=== PATIENT | female | born 1965 | race Caucasian/White ===

== ENCOUNTER → 2016-06-02 | Outpatient (CLI) | payer BC ==
--- NOTE | 2016-06-03 08:06 | BD ---
EXAMINATION TYPE: MG DEXA axial skeleton. DATE OF EXAM: 06/02/2016 3:37 PM COMPARISON: NONE CLINICAL HISTORY: POST MENOPAUSAL Height: 5 Weight: 142 FRAXIN RISK QUESTIONS: Alcohol (3 or more units per day): no Family History (Parent hip fracture): no Glucocorticoids (More than 3mos): no (Ex: prednisone, prednisolone, methylprednisolone, dexamethasone, and hydrocortisone). History of Fracture in Adulthood: no Secondary Osteoporosis: 1. Type 1 Diabetes: no 2. Hyperthyroidism: no 3. Menopause before 45: no 4. Malnutrition: no 5. Chronic liver disease: no Rheumatoid Arthritis: no Current Tobacco Use: no RISK FACTORS HISTORY OF: Postmenopausal woman: MEDICATIONS: Additional Medications: cholesterol, xanax, Motrin Additional History: screening post menopausal EXAM MEASUREMENTS: Bone mineral densitometry was performed using the [employer] System. Bone mineral density as measured about the Lumbar spine is: ----- L1-L4(G/cm2): 1.120 T Score Values are as follows: ----- L2: -1.5 ----- L3: -0.4 ----- L4: 1.0 ----- L1-L4:-0.5 Bone mineral density about the R hip (g/cm2): 0.880 Bone mineral density about the L hip (g/cm2): 0.926 T Score values are as follows: -----R Neck: -1.1 -----L Neck: -0.8 -----R Intertrochanter: -0.9 -----L Intertrochanter: -0.7 IMPRESSION: Osteopenia (T Score between -2.5 and -1 as noted by T score values:L2,Rt hip There is slightly increased risk of fracture and the patient may be considered for treatment. Re-Screen 1-2 years. NOTE: T-SCORE=SD OF THE YOUNG ADULT MEAN.
--- NOTE | 2016-06-03 09:28 | MM ---
Reason for exam: screening (asymptomatic). Last mammogram was performed 1 year and 1 month ago. History: Patient is postmenopausal and had first child at age 35. Family history of premenopausal breast cancer in sister at age 36. Benign MG stereo VAD BX LT of the left breast, February 15, 2014. Benign US left guided VAD of the left breast, November 03, 2008. Excisional biopsy of the left breast, February 28, 2008. Cancelled Left Mammotome of the left breast, February 24, 2008. Physical Findings: A clinical breast exam by your physician is recommended on an annual basis and results should be correlated with mammographic findings. MG Screening Mammo w CAD Bilateral CC and MLO view(s) were taken. Prior study comparison: May 12, 2015, bilateral MG screening mammo w CAD. July 26, 2014, left breast MG diagnostic mammo LT w CAD. The breast tissue is extremely dense which could obscure a lesion on mammography. Finding: There are indeterminate calcifications in the upper outer quadrant of the right breast, additonal stable left calcifications. Previous mammotome biopsy in the left breast. There is a chronic nodularity in the left breast. ASSESSMENT: Incomplete: need additional imaging evaluation, BI-RAD 0 RECOMMENDATION: Special view mammogram of the right breast. [facility] will attempt to contact patient to return for supplemental views.
== END | disposition home or self-care (01) ==
LOC: RADMAMWWP 15:01
PROVIDERS: ATTEND Obstetrics & Gynecology
DX: Z12.31 Encounter for screening mammogram for malignant neoplasm of breast (principal); M85.88 Other specified disorders of bone density and structure, other site; N95.1 Menopausal and female climacteric states
CPT/HCPCS: 77080; G0202

== ENCOUNTER → 2016-06-09 | Outpatient (CLI) | payer BC ==
--- NOTE | 2016-06-10 07:13 | MM ---
Reason for exam: additional evaluation requested from abnormal screening. Last mammogram was performed less than 1 month ago. History: Patient is postmenopausal and had first child at age 35. Family history of premenopausal breast cancer in sister at age 36. Benign MG stereo VAD BX LT of the left breast, February 15, 2014. Benign US left guided VAD of the left breast, November 03, 2008. Excisional biopsy of the left breast, February 28, 2008. Cancelled Left Mammotome of the left breast, February 24, 2008. Physical Findings: Nurse did not find any significant physical abnormalities on exam. MG 3D Work Up W/Cad RT ML view(s) were taken of the right breast. Prior study comparison: June 02, 2016, bilateral MG screening mammo w CAD. May 12, 2015, bilateral MG screening mammo w CAD. The breast tissue is heterogeneously dense. This may lower the sensitivity of mammography. Finding: There are slowly increasing grouped/clustered calcifications in the right breast. Increase in number of calcifications since 2014. ASSESSMENT: Suspicious, BI-RAD 4 RECOMMENDATION: Stereotactic core biopsy of the right breast. Called Dr. Deleon with mammographic findings and has scheduled an appointment for the patient for 06/23/16 at 4:[address] Huizar. PRELIMINARY REPORT CALLED AND FAXED TO DR. HUIZAR ON 06/10/16 AT 300/TP.
== END | disposition home or self-care (01) ==
LOC: RADMAMWWP 14:59
PROVIDERS: ATTEND Obstetrics & Gynecology
DX: R92.8 Other abnormal and inconclusive findings on diagnostic imaging of breast (principal)
CPT/HCPCS: G0206; G0279

== ENCOUNTER → 2016-07-03 | Day surgery (SDC) | payer BC ==
[~2016-07-03] MED LIST: BACITRACIN OINT 1 EACH PACKET TOPICAL ONE; LIDOCAINE 1% INJ 10MG/ML (20 ML MDV) ONE
--- NOTE | 2016-07-03 16:29 | MM ---
EXAMINATION TYPE: MG stereo VAD BX RT DATE OF EXAM: 07/03/2016 11:13 AM COMPARISON: 06/02/2016 CLINICAL HISTORY: 50-year-old female abnormal mammogram, referred for biopsy of right breast calcifications. TECHNIQUE: Stereotactic guided core biopsy of the right breast. FINDINGS: The procedure of stereotactic guided core biopsy was explained to the patient. Benefits, alternatives, and risks were discussed. An informed consent was then obtained. The shortness pathway for biopsy was chosen. Shortness pathway was a CC from above approach. I performed the localization, then surgeon, Dr. Roy performed the remainder of the procedure. A vacuum assisted biopsy gun was used to obtain multiple core samples. The patient tolerated the procedure well without any immediate complication. The patient was kept in the radiology department for short stay after the procedure and then discharged home in stable condition. Targeted calcifications are identified in specimen mammogram. Post biopsy mammogram shows the clip to appear in satisfactory position relative to the targeted area of concern on the preprocedure images. IMPRESSION: SUCCESSFUL, UNCOMPLICATED STEREOTACTIC GUIDED CORE BIOPSY OF RIGHT BREAST MICROCALCIFICATIONS, FULL PATHOLOGY RESULTS TO FOLLOW. Pathology Results: Benign BREAST, RIGHT, CORE BIOPSY: FIBROCYSTIC CHANGES INCLUDING FIBROADENOMATOID HYPERPLASIA WITH CALCIFICATIONS, FIBROSIS AND ADENOSIS. Recommendation Follow up mammogram of the right breast in 6 months. MIN
--- NOTE | 2016-07-03 21:48 | PCN ---
DATE OF PROCEDURE: PREPROCEDURE DIAGNOSIS: Suspicious mammogram, calcification right breast. POSTOPERATIVE DIAGNOSIS: Defer to pathology. PROCEDURE: Mammotome biopsy with clip application. This patient presented to my office with abnormal right mammogram, family history of breast cancer. [facility], placed on the mammotome table in the prone position. After coordinates were obtained by the radiologist, the skin was cleaned with Betadine. After infiltrating the skin with Marcaine 25% plain, the mammotome needle was advanced according to coordinates. Multiple cores were taken. X-ray of the core showed the calcification in question. Marker was placed. X-ray showed the marker in good position. The patient tolerated the procedure well.
== END ==
LOC: RADMAMWWP 10:04
PROVIDERS: ATTEND Surgery
DX: N60.11 Diffuse cystic mastopathy of right breast (principal); D24.1 Benign neoplasm of right breast; N60.21 Fibroadenosis of right breast; R92.8 Other abnormal and inconclusive findings on diagnostic imaging of breast; R92.1 Mammographic calcification found on diagnostic imaging of breast; R92.0 Mammographic microcalcification found on diagnostic imaging of breast; Z80.3 Family history of malignant neoplasm of breast
CPT/HCPCS: 88305; 19081; A4648; J2001

== ENCOUNTER → 2017-06-03 | Outpatient (CLI) | payer BC ==
--- NOTE | 2017-06-04 07:59 | MM ---
Reason for exam: additional evaluation requested from prior study. Last mammogram was performed 1 year ago. History: Patient is postmenopausal and had first child at age 35. Family history of premenopausal breast cancer in sister at age 36. Benign MG stereo VAD BX RT of the right breast, July 03, 2016. Benign MG stereo VAD BX LT of the left breast, February 15, 2014. Benign US left guided VAD of the left breast, November 03, 2008. Excisional biopsy of the left breast, February 28, 2008. Cancelled Left Mammotome of the left breast, February 24, 2008. Physical Findings: Nurse did not find any significant physical abnormalities on exam. MG 3D Diag Mammo W/Cad MADINA Bilateral CC and MLO view(s) were taken. Prior study comparison: June 09, 2016, right breast MG 3d work up w/cad RT. June 02, 2016, bilateral MG screening mammo w CAD. The breast tissue is heterogeneously dense. This may lower the sensitivity of mammography. Previous mammotome biopsy in the right and left breast. There is chronic nodularity in the left breast. No significant new findings when compared with previous films. These results were verbally communicated with the patient and result sheet given to the patient on 06/03/17. ASSESSMENT: Benign, BI-RAD 2 RECOMMENDATION: Routine screening mammogram of both breasts in 1 year.
== END | disposition home or self-care (01) ==
LOC: RADMAMWWP 15:29
PROVIDERS: ATTEND Obstetrics & Gynecology
DX: R92.8 Other abnormal and inconclusive findings on diagnostic imaging of breast (principal)
CPT/HCPCS: 77066; G0279

== ENCOUNTER → 2018-12-15 | Outpatient (CLI) | payer BC ==
--- NOTE | 2018-12-16 07:44 | BD ---
EXAMINATION TYPE: Axial Bone Density DATE OF EXAM: 12/15/2018 COMPARISON: 06/02/2016 CLINICAL HISTORY: Postmenopausal female. Height: 59.2 IN Weight: 145 LBS FRAX RISK QUESTIONS: Secondary Osteoporosis: Current Tobacco Use: YES RISK FACTORS HISTORY OF: Active: YES Postmenopausal woman: AGE 44 PARTIAL HYST MEDICATIONS: Additional Medications: CHOLESTEROL MEDS, ANTI DEPRESSANT, EXAM MEASUREMENTS: Bone mineral densitometry was performed using the [employer] System. Bone mineral density as measured about the Lumbar spine is: ----- L1-L4(G/cm2): 1.127 T Score Values are as follows: ----- L2: -1.2 ----- L3: -0.1 ----- L4: 0.4 ----- L1-L4: -0.4 Bone mineral density has: Increased 0.1% since study of: 06/02/2016 Bone mineral density about the R hip (g/cm2): 0.885 Bone mineral density about the L hip (g/cm2): 0.924 T Score values are as follows: -----R Neck: -1.1 -----L Neck: -0.8 -----R Total: -1.0 -----L Total: -0.9 Bone mineral density has: Decreased -1.9% since study of: 06/02/2016 IMPRESSION: Osteopenia (T Score between -2.5 and -1) remains present. There remains slightly increased risk of fracture and the patient may be considered for treatment. Re-Screen 2-5 years. NOTE: T-SCORE=SD OF THE YOUNG ADULT MEAN.
--- NOTE | 2018-12-17 11:02 | MM ---
Reason for exam: screening (asymptomatic). Last mammogram was performed 1 year and 6 months ago. History: Patient is postmenopausal and had first child at age 35. Family history of premenopausal breast cancer in sister at age 36. Benign MG stereo VAD BX RT of the right breast, July 03, 2016. Benign MG stereo VAD BX LT of the left breast, February 15, 2014. Benign US left guided VAD of the left breast, November 03, 2008. Excisional biopsy of the left breast, February 28, 2008. Cancelled Left Mammotome of the left breast, February 24, 2008. Physical Findings: A clinical breast exam by your physician is recommended on an annual basis and results should be correlated with mammographic findings. MG 3D Screening Mammo W/Cad Bilateral CC, MLO, and XCCL view(s) were taken. Prior study comparison: June 03, 2017, bilateral MG 3d diag mammo w/cad MADINA. June 09, 2016, right breast MG 3d work up w/cad RT. The breast tissue is heterogeneously dense. This may lower the sensitivity of mammography. Previous mammotome biopsy in the right breast and in the left breast x 2. There is chronic nodularity in the left breast. Stable grouped calcifications on the left seen on 3D and MLO images. No significant changes when compared with prior studies. ASSESSMENT: Benign, BI-RAD 2 RECOMMENDATION: Routine screening mammogram of both breasts in 1 year.
== END | disposition home or self-care (01) ==
LOC: RADMAMWWP 15:32
PROVIDERS: ATTEND Obstetrics & Gynecology
DX: Z12.31 Encounter for screening mammogram for malignant neoplasm of breast (principal); M85.89 Other specified disorders of bone density and structure, multiple sites
CPT/HCPCS: 77063; 77067; 77080

== ENCOUNTER → 2020-05-29 | Outpatient (CLI) | payer BC | END | disposition home or self-care (01) | LOC: LABWHC1 16:40 | PROVIDERS: ATTEND Emergency Medicine | DX: Z20.822 Contact with and (suspected) exposure to COVID-19 (principal) | CPT/HCPCS: U0003; C9803; U0005 ==

== ENCOUNTER → 2020-06-07 | Outpatient (CLI) | payer BC ==
--- NOTE | 2020-06-11 08:33 | MM ---
Reason for exam: screening (asymptomatic). Last mammogram was performed 1 year and 6 months ago. History: Patient is postmenopausal and had first child at age 35. Family history of premenopausal breast cancer in sister at age 36. Benign MG stereo VAD BX RT of the right breast, July 03, 2016. Benign MG stereo VAD BX LT of the left breast, February 15, 2014. Benign US left guided VAD of the left breast, November 03, 2008. Excisional biopsy of the left breast, February 28, 2008. Cancelled Left Mammotome of the left breast, February 24, 2008. Took hormonal contraceptives for 20 years. Physical Findings: A clinical breast exam by your physician is recommended on an annual basis and results should be correlated with mammographic findings. MG 3D Screening Mammo W/Cad Bilateral CC and MLO view(s) were taken. Prior study comparison: December 15, 2018, bilateral MG 3d screening mammo w/cad. June 03, 2017, bilateral MG 3d diag mammo w/cad MADINA. The breast tissue is heterogeneously dense. This may lower the sensitivity of mammography. Previous mammotome biopsy in the right and left breast x 2. There is chronic nodularity in the left breast anterior MLO view. Scattered oil cysts and fat necrosis calcifications. New grouped calcifications 6 o'clock posterior right breast. ASSESSMENT: Incomplete: need additional imaging evaluation, BI-RAD 0 RECOMMENDATION: Special view mammogram of the right breast. (magnification) If lesion persists on supplemental views, image directed ultrasound is recommended. [facility] will attempt to contact patient to return for supplemental views and ultrasound if indicated.
== END | disposition home or self-care (01) ==
LOC: RADMAMWWP 15:14
PROVIDERS: ATTEND Obstetrics & Gynecology
DX: Z12.31 Encounter for screening mammogram for malignant neoplasm of breast (principal); Z78.0 Asymptomatic menopausal state; Z80.3 Family history of malignant neoplasm of breast
CPT/HCPCS: 77063; 77067

== ENCOUNTER → 2020-06-20 | Outpatient (CLI) | payer BC ==
--- NOTE | 2020-06-21 09:01 | MM ---
Reason for exam: additional evaluation requested from abnormal screening. Last mammogram was performed less than 1 month ago. History: Patient is postmenopausal and had first child at age 35. Family history of premenopausal breast cancer in sister at age 36. Benign MG stereo VAD BX RT of the right breast, July 03, 2016. Benign MG stereo VAD BX LT of the left breast, February 15, 2014. Benign US left guided VAD of the left breast, November 03, 2008. Excisional biopsy of the left breast, February 28, 2008. Cancelled Left Mammotome of the left breast, February 24, 2008. Took hormonal contraceptives for 20 years. Physical Findings: Nurse did not find any significant physical abnormalities on exam. MG 3D Work Up W/Cad RT CC with magnification, LM with magnification, and LM view(s) were taken of the right breast. Prior study comparison: June 07, 2020, bilateral MG 3d screening mammo w/cad. December 15, 2018, bilateral MG 3d screening mammo w/cad. The breast tissue is heterogeneously dense. This may lower the sensitivity of mammography. Finding: There are intermediate concern, suspicious coarse heterogeneous, linear calcifications in the 6 o'clock position of the right breast 6cm from the nipple. New finding since December 15, 2018. These results were verbally communicated with the patient and result sheet given to the patient on 06/20/20. ASSESSMENT: Suspicious, BI-RAD 4 RECOMMENDATION: Stereotactic core biopsy of the right breast. Called Dr. Deleon's office with mammographic findings and has scheduled an appointment for the patient for 08/02/20 at 11:[address] Gutierrez. Biopsy scheduled for 07/09/20 at 10:00. PRELIMINARY REPORT CALLED AND FAXED TO DR. GUTIERREZ ON 06/21/20.
== END | disposition home or self-care (01) ==
LOC: RADMAMWWP 14:57
PROVIDERS: ATTEND Obstetrics & Gynecology
DX: Z78.0 Asymptomatic menopausal state (principal); Z80.3 Family history of malignant neoplasm of breast
CPT/HCPCS: 77061; 77065

== ENCOUNTER → 2020-07-09 | Day surgery (SDC) | payer BC ==
[2020-07-09 09:29] VITALS: BP 163/107; PULSE 84; RESP 16; TEMP 98.9
== END ==
LOC: RADMAMWWP 09:02
PROVIDERS: ATTEND Surgery
DX: R92.8 Other abnormal and inconclusive findings on diagnostic imaging of breast (principal); Z53.8 Procedure and treatment not carried out for other reasons; R03.0 Elevated blood-pressure reading, without diagnosis of hypertension

== ENCOUNTER → 2020-08-08 | Day surgery (SDC) | payer BC ==
[2020-08-08 09:25] VITALS: RESP 16
[2020-08-08 10:38] VITALS: BP 127/86; PULSE 83; TEMP 98.3
--- NOTE | 2020-08-08 17:10 | MM ---
EXAMINATION TYPE: MG stereo VAD BX RT DATE OF EXAM: 08/08/2020 COMPARISON: 06/20/2020 CLINICAL HISTORY: New right breast calcifications patient TECHNIQUE: Stereotactic guided core biopsy of right breast. FINDINGS: The procedure of stereotactic guided core biopsy was explained to the patient. Benefits, alternatives, and risks were discussed. An informed consent was then obtained. The shortness pathway for biopsy was chosen. Shortness pathway was right approach. The patient tolerated the procedure well without any immediate complication. The patient was kept in the radiology department for short stay after the procedure and then discharged home in stable condition. Targeted calcifications are identified in specimen mammogram. Post biopsy mammogram shows the clip to appear in satisfactory position relative to the targeted area of concern on the preprocedure images. IMPRESSION: SUCCESSFUL, UNCOMPLICATED STEREOTACTIC GUIDED CORE BIOPSY OF AREA OF CONCERN IN THE right BREAST, FULL PATHOLOGY RESULTS TO FOLLOW. Pathology Results: Benign RIGHT BREAST, STEREOTACTIC CORE BIOPSY: Fibrocystic changes including fibroadenomatoid hyperplasia and sclerosing adenosis with calcifications. Recommendation Follow up mammogram of the right breast in 6 months. MIN
== END ==
LOC: RADMAMWWP 08:54
PROVIDERS: ATTEND Surgery
DX: N60.11 Diffuse cystic mastopathy of right breast (principal); N60.21 Fibroadenosis of right breast; R92.8 Other abnormal and inconclusive findings on diagnostic imaging of breast; R92.1 Mammographic calcification found on diagnostic imaging of breast
CPT/HCPCS: 88305; 19081; A4648; J2001

== ENCOUNTER → 2021-02-08 | Outpatient (CLI) | payer BC ==
--- NOTE | 2021-02-11 10:01 | MM ---
Reason for exam: follow-up at short interval from prior study. Last mammogram was performed 8 months ago. History: Patient is postmenopausal and had first child at age 35. Family history of premenopausal breast cancer in sister at age 36. Benign MG stereo VAD BX RT of the right breast, August 08, 2020. Benign MG stereo VAD BX RT of the right breast, July 03, 2016. Benign MG stereo VAD BX LT of the left breast, February 15, 2014. Benign US left guided VAD of the left breast, November 03, 2008. Excisional biopsy of the left breast, February 28, 2008. Cancelled Left Mammotome of the left breast, February 24, 2008. Took hormonal contraceptives for 20 years. Physical Findings: Nurse did not find any significant physical abnormalities on exam. MG Diagnostic Mammo RT w CAD CC and MLO view(s) were taken of the right breast. Prior study comparison: June 07, 2020, bilateral MG 3d screening mammo w/cad. December 15, 2018, bilateral MG 3d screening mammo w/cad. The breast tissue is heterogeneously dense. This may lower the sensitivity of mammography. There are benign appearing round dystrophic calcifications in the right breast. Previous mammotome biopsy in the right breast. There is no discrete abnormality. These results were verbally communicated with the patient and result sheet given to the patient on 02/08/21. ASSESSMENT: Benign, BI-RAD 2 RECOMMENDATION: Return to routine screening mammogram schedule for both breasts. Back on schedule for June 2021.
== END | disposition home or self-care (01) ==
LOC: RADMAMWWP 15:00
PROVIDERS: ATTEND Surgery
DX: R92.1 Mammographic calcification found on diagnostic imaging of breast (principal); Z78.0 Asymptomatic menopausal state; Z80.3 Family history of malignant neoplasm of breast
CPT/HCPCS: 77065

== ENCOUNTER → 2022-02-17 | Outpatient (CLI) | payer BC ==
--- NOTE | 2022-02-18 09:37 | BD ---
EXAMINATION TYPE: Axial Bone Density DATE OF EXAM: 02/17/2022 COMPARISON: 12/15/2018 CLINICAL HISTORY: 56 years year old Female. ICD-10 CODE: M85.88 OTH DISRD OF BONE DENSI Height: 59 IN Weight: 144 LBS FRAX RISK QUESTIONS: Current Tobacco Use: YES RISK FACTORS HISTORY OF: Active: YES Postmenopausal woman: PART HYST AGE 44 Take estrogen and/or progesterone medications: NOT NOW How long: TOOK CONTROL FOR 20 YEARS MEDICATIONS: Additional Medications: CHOLESTEROL MEDS, BLOOD PRESSURE MEDS, ANTI DEPRESSANT, HEARTBURN MEDS EXAM MEASUREMENTS: Bone mineral densitometry was performed using the [employer] System. Bone mineral density as measured about the Lumbar spine is: ----- L1-L4(G/cm2): 1.138 T Score Values are as follows: ----- L1: -1.3 ----- L2: -0.9 ----- L3: -0.1 ----- L4: 0.5 ----- L1-L4: -0.4 Bone mineral density has: Increased 1.5% since study of: 12/15/2018 Bone mineral density about the R hip (g/cm2): 0.904 Bone mineral density about the L hip (g/cm2): 0.909 T Score values are as follows: -----R Neck: -1.0 -----L Neck: -0.9 -----R Total: -1.0 -----L Total: -1.1 Bone mineral density has: Decreased -2.0% since study of: 12/15/2018 FRAX%s: The graph provided illustrates a 6.1 chance for a major osteoporotic fx and a 0.5 chance for the hips probability for fx in 10 years time. IMPRESSION: Osteopenia (T Score between -2.5 and -1). There is slightly increased risk of fracture and the patient may be considered for treatment. Re-Screen 2-5 years. NOTE: T-SCORE=SD OF THE YOUNG ADULT MEAN.
--- NOTE | 2022-02-18 10:36 | MM ---
Reason for Exam: Screening (asymptomatic). Last mammogram was performed 1 year(s) and 8 month(s) ago. Patient History: Menarche at age 14. First Full-Term at age 35. Late child-bearing (after 30). Hysterectomy at age 41. Postmenopausal. Patient used Hormonal Contraceptives for 20 years. 02/28/2008, Excisional Biopsy on the Left side. 08/08/2020, Benign Core Biopsy on the right side. 07/03/2016, Benign Core Biopsy on the right side. 02/15/2014, Benign Core Biopsy on the left side. 11/03/2008, Benign Core Biopsy on the left side. 02/24/2008, Cancelled Left Mammotome on the left side. Sister had breast cancer, age 36. Risk Values: Li 5 year model risk: 3.5%. NCI Lifetime model risk: 20.2%. Prior Study Comparison: 07/26/2014 Left Diagnostic Mammogram, [facility]. 05/12/2015 Bilateral Screening Mammogram, [facility] 06/02/2016 Bilateral Screening Mammogram, [facility]. 06/09/2016 Right Diagnostic Mammogram, [facility]. 06/03/2017 Bilateral Diagnostic Mammogram, [facility]. 12/15/2018 Bilateral Screening Mammogram, [facility]. 06/07/2020 Bilateral Screening Mammogram, [facility]. 06/20/2020 Right Diagnostic Mammogram, [facility]. 02/08/2021 Right Diagnostic Mammogram, [facility]. Tissue Density: The breast tissue is heterogeneously dense. This may lower the sensitivity of mammography. Findings: Analyzed By CAD. Mammotome biopsy clips bilaterally are redemonstrated. There are few scattered benign-appearing round and dystrophic calcifications bilaterally redemonstrated. There is 5 mm well-circumscribed mass in the anterior left breast inner aspect. Stable distortion in the upper aspect right breast from prior biopsy. No new masses or suspicious group of microcalcification bilaterally. Benign-appearing bilateral axillary lymph nodes are redemonstrated. Overall Assessment: Benign, BI-RAD 2 Management: Screening Mammogram of both breasts in 1 year. A clinical breast exam by your physician is recommended on an annual basis and results should be correlated with mammographic findings. Electronically signed and approved by: Bandar Cates M.D.
== END | disposition home or self-care (01) ==
LOC: RADBDWWP 14:58
PROVIDERS: ATTEND Obstetrics & Gynecology
DX: Z12.31 Encounter for screening mammogram for malignant neoplasm of breast (principal); M85.89 Other specified disorders of bone density and structure, multiple sites; Z78.0 Asymptomatic menopausal state; Z80.3 Family history of malignant neoplasm of breast; Z98.890 Other specified postprocedural states
CPT/HCPCS: 77063; 77067; 77080

== ENCOUNTER → 2023-03-13 | Outpatient (CLI) | payer BC ==
--- NOTE | 2023-03-16 15:17 | MM ---
Reason for Exam: Screening (asymptomatic). Last mammogram was performed 1 year(s) and 1 month(s) ago. Patient History: Menarche at age 14. First Full-Term at age 35. Late child-bearing (after 30). Hysterectomy at age 41. Postmenopausal. Patient used Hormonal Contraceptives for 20 years. 02/28/2008, Excisional Biopsy on the Left side. 08/08/2020, Benign Core Biopsy on the right side. 07/03/2016, Benign Core Biopsy on the right side. 02/15/2014, Benign Core Biopsy on the left side. 11/03/2008, Benign Core Biopsy on the left side. 02/24/2008, Cancelled Left Mammotome on the left side. Sister had breast cancer, age 36. Risk Values: Li 5 year model risk: 3.7%. NCI Lifetime model risk: 19.8%. Prior Study Comparison: 06/20/2020 Right Diagnostic Mammogram, [facility]. 02/08/2021 Right Diagnostic Mammogram, [facility]. 02/17/2022 Bilateral MG 3D screening mammo w/cad, [facility]. Tissue Density: The breast tissue is extremely dense which could obscure a lesion on mammography. Findings: Analyzed By CAD. Pattern appears asymmetric with greater parenchymal tissue on the right than the left. The pattern is stable from comparison. Multiple benign calcifications are present. Core markers from prior biopsies are evident. No suspicious groups of microcalcifications, spiculated or lobular masses, architectural distortion or other secondary signs of malignancy are mammographically apparent. Overall Assessment: Benign, BI-RAD 2 Management: Screening Mammogram of both breasts in 1 year. A negative mammogram report should not preclude additional follow up of suspicious palpable abnormalities. Patient should continue monthly self breast exam. A clinical breast exam by your physician is recommended on an annual basis and results should be correlated with mammographic findings. Electronically signed and approved by: Earle Malagon D.O. Radiologis
== END | disposition home or self-care (01) ==
LOC: RADMAMWWP 15:09
PROVIDERS: ATTEND Obstetrics & Gynecology
DX: Z12.31 Encounter for screening mammogram for malignant neoplasm of breast (principal); Z80.3 Family history of malignant neoplasm of breast; Z78.0 Asymptomatic menopausal state
CPT/HCPCS: 77063; 77067

== ENCOUNTER → 2024-06-17 | Outpatient (CLI) | payer BC ==
--- NOTE | 2024-06-17 14:26 | CT ---
EXAMINATION TYPE: CT abdomen pelvis wo con CT DLP: 381 mGycm, Automated exposure control for dose reduction was used. DATE OF EXAM: 06/17/2024 1:49 PM COMPARISON: None CLINICAL INDICATION:Female, 58 years old with history of R10.9 UNSPECIFIED ABDOMINAL PAIN; ABD PAIN TECHNIQUE: Standard CT of the abdomen and pelvis without IV or oral contrast. Lack of IV or oral co ntrast limits evaluation of solid and hollow organ viscera. Coronal and sagittal reformats were perfo rmed. FINDINGS: LOWER CHEST: Unremarkable noncontrast appearance. ABDOMEN LIVER: Unremarkable noncontrast appearance. GALLBLADDER AND BILE DUCTS: Unremarkable noncontrast appearance. PANCREAS: Unremarkable noncontrast appearance. SPLEEN: Unremarkable noncontrast appearance. ADRENAL GLANDS: Unremarkable noncontrast appearance.. KIDNEYS AND URETERS: No evidence of hydronephrosis or renal calculus. No ureteral calculus identified . PELVIS BLADDER: There is a 3 mm calculus along the posterior aspect of the left urinary bladder wall which m ay represent a urinary bladder calculus versus pelvic phlebolith. Urinary bladder is under distended without wall thickening or surrounding fat stranding. REPRODUCTIVE: The uterus is surgically absent. ABDOMEN & PELVIS STOMACH AND BOWEL: Stomach and duodenum are unremarkable. Scattered distal colonic diverticulosis wit hout evidence for acute diverticulitis. Mild colonic stool burden. The appendix is not definitively v isualized. No focal bowel wall thickening or surrounding inflammatory changes. No evidence of bowel o bstruction. PERITONEUM: No evidence of pneumoperitoneum or free fluid. VASCULATURE: Mild atherosclerotic calcifications are present throughout the abdominal aorta and its b ranches. No evidence of aortic aneurysm. MUSCULOSKELETAL: No acute osseous abnormalities. S-shaped scoliotic curvature of the thoracolumbar sp ine. Grade 1 anterolisthesis of L5 on S1 without pars defects. LYMPH NODES: No gross evidence for lymphadenopathy. SOFT TISSUE/ABDOMINAL WALL: Tiny fat filled umbilical hernia. IMPRESSION: 1. No CT evidence for acute abdominal/pelvic process within limitations of a noncontrast exam. 2. 3 mm calculus along the left posterior urinary bladder wall which may represent a urinary bladder calculus versus pelvic phlebolith. No evidence for obstructive uropathy. 3. Colon diverticulosis without evidence for acute diverticulitis. 4. Scoliosis. [facility], , 06/17/2024 2:24 PM
== END | disposition home or self-care (01) ==
LOC: RADCTMAIN 13:18
PROVIDERS: ATTEND Emergency Medicine
DX: K57.30 Diverticulosis of large intestine without perforation or abscess without bleeding (principal); M41.9 Scoliosis, unspecified
CPT/HCPCS: 74176

== ENCOUNTER → 2024-07-11 | Outpatient (CLI) | payer BC ==
--- NOTE | 2024-07-12 07:46 | MM ---
Reason for Exam: Screening (asymptomatic). Last mammogram was performed 1 year(s) and 4 month(s) ago. Patient History: Menarche at age 14. First Full-Term at age 35. Late child-bearing (after 29). Hysterectomy at age 41. Postmenopausal. Patient used Hormonal Contraceptives for 20 years. 02/28/2008, Excisional Biopsy on the Left side. 08/08/2020, Benign Core Biopsy on the right side. 07/03/2016, Benign Core Biopsy on the right side. 02/15/2014, Benign Core Biopsy on the left side. 11/03/2008, Benign Core Biopsy on the left side. 02/24/2008, Cancelled Left Mammotome on the left side. Sister had breast cancer, age 36. Risk Values: Li 5 year model risk: 3.8%. NCI Lifetime model risk: 19.4%. Prior Study Comparison: 02/08/2021 Right Diagnostic Mammogram, [facility]. 02/17/2022 Bilateral MG 3D screening mammo w/cad, [facility]. 03/13/2023 Bilateral MG 3D screening mammo w/cad, [facility]. Tissue Density: The breasts are heterogeneously dense, which may obscure small masses. Findings: Analyzed By CAD. Left breast biopsy clip. Right breast: There is no suspicious group of microcalcifications or new suspicious mass. Benign-appearing calcifications right breast. Left breast: There is no suspicious group of microcalcifications or new suspicious mass. Benign-appearing calcifications left breast. Overall Assessment: Benign, BI-RAD 2 Management: Screening Mammogram of both breasts in [address] [facility] will attempt to contact patient to return for supplemental views and ultrasound if indicated. Patient should continue monthly self-breast exams. A clinical breast exam by your physician is recommended on an annual basis. This exam should not preclude additional follow-up of suspicious palpable abnormalities. Note on Li scores and lifetime risk: 1. A Li score greater than 3% is considered moderate risk. If this is the case, consider specialist referral to assess eligibility for a risk reducing agent. 2. If overall lifetime risk for the development of breast cancer is 20% or higher, the patient may qualify for future screening with alternating mammogram and breast MRI. [facility], Workstation: [id number], 07/12/2024 7:44 AM. Electronically signed and approved by: Juan F Ron DO
--- NOTE | 2024-07-12 08:21 | BD ---
EXAMINATION TYPE: Axial Bone Density DATE OF EXAM: 07/11/2024 CLINICAL HISTORY: 58 years old Female. ICD-10 CODE: Z78.0 POST QUOC , Additional History: Height: 59 in Weight: 142 lbs Current Tobacco Use: yes EXAM MEASUREMENTS: Bone mineral densitometry was performed using the [employer] System. Bone mineral density as measured about the Lumbar spine is: ----- L1-L4(G/cm2): 1.092 T Score Values are as follows: ----- L1: -1.2 ----- L2: -1.7 ----- L3: -0.7 ----- L4: 0.1 ----- L1-L4: -0.7 Z Score Values are as follows: ----- L1: -0.1 ----- L2: -0.5 ----- L3: 0.5 ----- L4: 1.3 ----- L1-L4: 0.4 Bone mineral density has: Decreased -4.0% since study of: 02/17/2022 Bone mineral density about the R hip (g/cm2): 0.841 Bone mineral density about the L hip (g/cm2): 0.873 T Score values are as follows: -----R Neck: -1.4 -----L Neck: -0.8 -----R Total: -1.3 -----L Total: -1.1 Z Score values are as follows: -----R Neck: -0.2 -----L Neck: 0.4 -----R Total: -0.4 -----L Total: -0.2 Bone mineral density has: Decreased -1.8% since study of: 02/17/2022 FRAX%s: The graph provided illustrates a 7.7% chance for a major osteoporotic fx and a 1.0% chance fo r the hips probability for fx in 10 years time. IMPRESSION: Osteopenia (T Score between -2.5 and -1). There is slightly increased risk of fracture and the patient may be considered for treatment. Re-Screen 2-5 years. NOTE: T-SCORE=SD OF THE YOUNG ADULT MEAN. [facility], , 07/12/2024 8:18 AM
== END | disposition home or self-care (01) ==
LOC: RADMAMWWP 15:50
PROVIDERS: ATTEND Obstetrics & Gynecology
DX: Z12.31 Encounter for screening mammogram for malignant neoplasm of breast (principal); R92.333 Mammographic heterogeneous density, bilateral breasts; R92.1 Mammographic calcification found on diagnostic imaging of breast; M85.89 Other specified disorders of bone density and structure, multiple sites; Z80.3 Family history of malignant neoplasm of breast; Z92.0 Personal history of contraception; Z78.0 Asymptomatic menopausal state
CPT/HCPCS: 77063; 77067; 77080